=== PATIENT | male | born 1980 | race Caucasian/White ===

== ENCOUNTER 2017-03-19 03:51 | Inpatient (IN) | payer BC ==
[~2017-03-19] VITALS: Ht 175.3 cm; Wt 90.0 kg
--- NOTE | ~2017-03-19 | HP ---
PATIENT'S NAME: [facility] AGE: 36 Y [address] ROOM: [place] [address] LOCATION: [facility] ADMIT DATE: 03/19/2017 History & Physical DISCHARGE DATE: FAMILY PHYSICIAN: PHYSICIAN, UNKNOWN ATTENDING PHYSICIAN: Bari Muller DATE OF SERVICE: HISTORY OF PRESENT ILLNESS: This 36-year-old male was transferred here from [place]. He apparently was bucked off his horse. His left ankle got tangled in the strap. He was able to get this untangled, and he fell landing on the back of his head. Post fall, he complained of headaches and mild nausea. In addition, however, he also complained of some tingling in both arms and hands. However, assessment did not show any significant weakness in the upper or lower extremities. He was intubated in the hospital in [place], primarily because it was felt that he may not be able to maintain his airway and I think, by the way, it also could have had to do with the fact that CT of the chest showed a probability of lower lobe atelectasis. The assessment of his lower limbs were normal. He had a CT scan of the chest and abdomen, which did not show any injuries to the organs apart from the probable atelectasis that was reported on the CT of the chest. He had a CT scan of his cervical spine that shows a fracture of the anterior arch of C1 with some slight distraction. An x-ray of the left ankle did not show any fractures. He complained of left ankle pain. PAST MEDICAL AND SURGICAL HISTORY: 1. He has had hiatal hernia repair using Faizan fundoplication. 2. He also had a posterior fossa decompression with a C1 laminectomy for Chiari malformation. FAMILY HISTORY: Father had a heart attack in his 50s. Grandfather from a heart attack in his 40s. SOCIAL HISTORY: He does not smoke. ALLERGIES: HE IS ALLERGIC TO BENADRYL AND HYDROCODONE. REVIEW OF SYSTEMS: Could not be carried out primarily because of his neurological status. MEDICATIONS: See the admitting note. PATIENT'S NAME: [facility] AGE: 36 Y [address] ROOM: [place] [address] LOCATION: [facility] ADMIT DATE: 03/19/2017 History & Physical DISCHARGE DATE: FAMILY PHYSICIAN: PHYSICIAN, UNKNOWN ATTENDING PHYSICIAN: Bari Muller PHYSICAL EXAMINATION: VITAL SIGNS: In the Emergency Room, this is a 36-year-old male, whose blood pressure was 149/82, pulse was 89, respirations were 12, and temperature was 96.6. HEENT: His pupils were 2 mm and reacted briskly to light. NECK: The neck was placed in his collar. CHEST: Clear. CARDIAC: Heart rate was regular. NEUROLOGICAL: Examination was quite limited primarily because he has had Versed, and so there was really no response to painful stimuli. DIAGNOSTIC STUDIES: While he came, we went ahead and got an MRI of the cervical spine primarily because of the tingling that he complained of going down both upper extremities. Consequently, the MRI of the cervical spine was normal. He had a CTA of the neck, and this also was normal. IMPRESSION: 1. Fracture in anterior arch of C1. 2. Left ankle sprain. PLAN: I went ahead and removed the C-collar that he came in with, and put him in a [place] J collar. The plan will be to admit him to the Intensive Care Unit, and wean him off the vent. MD RYAN AUGUSTE/rayne /[id number] D: [id number] T: [id number] HISTORY & PHYSICAL
--- NOTE | ~2017-03-19 | ER ---
PATIENT'S NAME: EVONNE [facility] AGE: 36 Y [address] ROOM: [place] [address] LOCATION: [facility] ADMIT DATE: 03/19/2017 ER/Outpatient Report DISCHARGE DATE: FAMILY PHYSICIAN: PHYSICIAN, UNKNOWN ATTENDING PHYSICIAN: Bari Muller Time of Arrival: 0353 hours. Time Seen: 0353 hours. IDENTIFICATION: A 36-year-old male. CHIEF COMPLAINT: Trauma. HISTORY OF PRESENT ILLNESS: The patient is a 36-year-old male, who presented from [place], [place] after sustaining a cervical spine injury. He presented to the emergency room in [place] by private vehicle with his after being thrown from a horse. He got hung up on the strap with his left ankle, managed to free himself, but hit the ground and hit the posterior aspect of his head and upper torso. It reportedly did knock the wind out of him, but no loss of consciousness. This history is [facility] He presented with complaints of a severe headache, mild nausea, heaviness to his upper arms, and paresthesia bilaterally down both arms into the hands and complained of left ankle pain, but moves all extremities. Bilateral upper extremities were weaker, but moved that. After arrival there to the emergency room, he was given 1 g of IV Tylenol and then he dropped his blood pressure and heart rate, heart rate to 40s, blood pressures to 80s. He grew pale cooley and did not respond as well, so they did RSI him. So, he presented paralyzed and intubated. So, history was obtained from the flight team. He received rocuronium 1 hour prior to arrival. He is on a Versed drip and he has received fentanyl for pain. He has been hemodynamically stable for them. PAST MEDICAL HISTORY: ALLERGIES: TO BENADRYL AND HYDROCODONE. CURRENT MEDICATIONS: 1. Atorvastatin 40 mg daily. 2. Valium 5 mg p.r.n. MEDICAL PROBLEMS: Chiari malformation, status post surgery 2 years ago; hiatal hernia, status PATIENT'S NAME: [facility] AGE: 36 Y [address] ROOM: [place] [address] LOCATION: [facility] ADMIT DATE: 03/19/2017 ER/Outpatient Report DISCHARGE DATE: FAMILY PHYSICIAN: PHYSICIAN, UNKNOWN ATTENDING PHYSICIAN: Bari Muller post Faizan procedure with complications and ended up in open thoracic procedure; eosinophilic esophagitis. SOCIAL HISTORY: The patient is . Lives in [place], [place]. Tobacco use, none noted. Alcohol use, none noted. Drug use, none noted. FAMILY HISTORY: Father with heart attack in his 50s. Grandfather with a heart attack in his 40s. SURGERIES: Hiatal hernia surgery, open transthoracic repair of complications from a Faizan procedure, bilateral knee arthroscopy, and shoulder surgeries as well as Chiari malformation surgery. REVIEW OF SYSTEMS: Unable to obtain from this patient. PHYSICAL EXAMINATION: VITAL SIGNS: Pulse 89, respirations 12, temp 96.6, sats 97%, blood pressure 149/82. GENERAL: A 36-year-old male arrives by the flight team from [place] being ventilated on their ventilator. HEENT: Eyes are taped shut. TMs not visualized. Nose, mucosa pink. Mouth, no lesions. NECK: Immobilized in a C-collar. LUNGS: Clear to auscultation. Breath sounds are equal. No rhonchi, wheezes, or rales. HEART: Regular rate and rhythm. No murmur, rub, or gallop. ABDOMEN: Bowel sounds present. Soft, nondistended. No instability to pelvic rock. EXTREMITIES: He has a splint on his left lower extremity. No bony abnormalities to right lower extremity. The splint was removed from his left lower extremity. He has a few abrasions on his lower leg, swelling of the lateral ankle. LABORATORY DATA AND X-RAYS: X-ray did not reveal any fractures. A posterior splint was reapplied to his left lower extremity. Upper extremities, no obvious deformities are noted. No chest wall crepitus or deformities are noted. The patient was taken off the Versed drip and propofol was initiated per Dr. He, Anesthesia. CT scans and x-rays were reviewed as well as reports. Labs from [place] were reviewed as well. CT scan of the cervical spine showed fracture of the anterior arch of C1, status post occipital craniectomy and resection of the [facility]GE: 36 Y [address] ROOM: [id number] [place], [place] [address] LOCATION: [facility] ADMIT DATE: 03/19/2017 ER/Outpatient Report DISCHARGE DATE: FAMILY PHYSICIAN: PHYSICIAN, UNKNOWN ATTENDING PHYSICIAN: Bari Muller posterior arch of C1. CT scan of the head without contrast, no acute findings. CT scan of the chest, abdomen, and pelvis without contrast shows no evidence for acute thoracic abdominopelvic organ injury, old healed left posterior 8th rib fracture. The patient has dependent lower lobe airspace opacities most likely atelectasis. X-ray of the left ankle, no obvious fracture, he does have some soft tissue swelling noted. ABGs performed at 1:23 in [place] pH 7.33, pCO2 42, PO2 128, 99% sats. Sodium 142, potassium 4.1, chloride 110, CO2 of 23, BUN 24, creatinine 1.1. Blood sugar 96. Liver enzymes normal. Hemoglobin 16.3, hematocrit 46.8, platelets 221, white count 9.5. INR 1.03. Blood type AB-positive. Repeat labs here: Hemoglobin 15.1, hematocrit 44.4, platelets 181, white count 8.4. EMERGENCY DEPARTMENT COURSE: The patient received in [place] Zofran 8 mg IV, Versed 1 mg IV, fentanyl 50 mcg, 200 mg of sucks, 20 of etomidate, another 2 of Versed, another 50 of fentanyl, rocuronium 50 mg, lidocaine 15 mg, Ancef 2 g IV. Hackett catheter was placed draining clear urine. The patient had a tetanus booster. The patient was taken for MRI of his cervical spine without contrast immediately upon arrival as well as a CT of the neck both reviewed by Dr. Muller. IMPRESSION AND PLAN: 1. Acute C1 fracture. 2. Atelectasis versus bilateral pulmonary contusions. 3. Left ankle injury, no acute fracture identified, posterior splint reapplied. 4. Transient episode of hypotension and bradycardia, resolved. Dr. Mark He, Anesthesia was here on the patient arrival and Dr. Muller also saw the patient in the emergency room and was taken to ICU in stable condition. LEAH SAMANIEGO MD CAR/modl /[id number] d: 03/19/17740 t: 03/23/17628, OUTPATIENT REPORT
--- NOTE | ~2017-03-19 | DS ---
PATIENT'S NAME: MIHAI DOUGLASS [facility] AGE: 36 Y [address] ROOM: [id number] [place], [place] [address] LOCATION: [facility] ADMIT DATE: 03/19/2017 Discharge Summary DISCHARGE DATE: 03/21/2017 FAMILY PHYSICIAN: Magdaleno Renteria MD ATTENDING PHYSICIAN: Bari Muller [facility] COURSE: This 36-year-old male was transferred here from [place] after being bucked off his horse. His left ankle was caught in the strap. On arrival here, he had been intubated in the hospital [facility] primarily because on the assessment, they were unsure if he could keep his airway during the transfer. When he got here, he was still sedated and intubated. Prior to coming here, he had a CT scan of his chest done which does show the probability of some lower lobe atelectasis. CT of the cervical spine shows a fracture of the anterior arch of C1. X-ray of the left ankle did not show any fractures and since he really did not lose any consciousness, though he did complain of some headache in the local hospital. He was admitted to the intensive care unit here and we went ahead and weaned him off the ventilator. When he came around, we had some difficulty controlling his pain which we eventually were able to control and put him in a cervical collar. He did quite well and he was eventually discharged home, at which time, he was just taking extra-strength Tylenol for pain and used to wear his collar all the time and to see me in the clinic 3 weeks from the time of discharge. FINAL DIAGNOSES: Fracture anterior arch of C1. MD RYAN AUGUSTE/rayne /[id number] d: 04/23/172234 t: 04/24/171754, DISCHARGE SUMMARY
--- NOTE | ~2017-03-19 | CON ---
PATIENT'S NAME: EVONNE [facility] AGE: 36 Y [address] ROOM: [place] [address] [address]ATION: [facility] ADMIT DATE: 03/19/2017 Consultation DISCHARGE DATE: FAMILY PHYSICIAN: Magdaleno Renteria MD ATTENDING PHYSICIAN: Bari Muller HISTORY OF PRESENT ILLNESS: Dr. Muller has requested that I provide an inpatient consultation on this 36- year-old male, who was admitted yesterday after having been thrown and dragged by a horse. He was initially evaluated in the [facility] Emergency Room. He was transferred here to the Neuro Trauma Service. He has a C2 fracture. Dr. Muller has requested that I evaluate his left ankle pain. The patient and his state that he was thrown from a horse, and his left foot became trapped in the stirrup. He was dragged by his left foot in the stirrup for an unspecified period of time. He localizes his ankle pain to the medial aspect of his ankle. He denies ipsilateral knee pain. He denies lateral ankle pain. He denies history of prior left foot or ankle discomfort or dysfunction. His present medications and medical history are otherwise as specified on his chart. PRESENT MEDICATIONS: Include 1. Dilaudid. 2. Percocet. 3. Zofran. PHYSICAL EXAMINATION: GENERAL: He is alert and oriented, and in no distress. He is wearing a cervical spine collar. EXTREMITIES: There is no swelling or deformity at the left ankle. He is tender over the medial malleolus and deltoid ligament. There was no tenderness over the lateral malleolus or syndesmosis or fibular head. There is no left calf swelling or tenderness. There is no left foot swelling or tenderness. Sensation to light touch is intact throughout the left foot. A 1+ dorsalis pedis pulse on the left. RADIOGRAPHIC STUDIES: Four radiographic views of the left ankle demonstrate no fracture. There is no syndesmosis widening, and there is normal hindfoot alignment. IMPRESSION: Left ankle contusion - strain. No evidence of associated fracture or dislocation. PATIENT'S NAME: [facility] AGE: 36 Y [address] ROOM: [place] [address] LOCATION: [facility] ADMIT DATE: 03/19/2017 Consultation DISCHARGE DATE: FAMILY PHYSICIAN: Magdaleno Renteria MD ATTENDING PHYSICIAN: Bari Muller PLAN: I reassured the patient and his that there was no evidence of fracture of the ankle. He will be permitted to bear weight on the left lower extremity as tolerated. We will consider repeat radiographs if symptoms increase. We will consider an MRI if symptoms do not resolve in a timely fashion. I have asked to be contacted immediately if there is any trend of increased discomfort and/or inability to bear weight. MD KEON GARCIA/rayne /[id number] CC: Bari Muller MD d: 03/19/17 2319 t: 03/22/17 0752, CONSULTATION REPORT
--- NOTE | ~2017-03-19 | ER ---
PATIENT'S NAME: MARY SEGURA [facility] AGE: 36 Y [address] ROOM: [id number] [place] [id number] LOCATION: [facility] ADMIT DATE: 03/19/2017 ER/Outpatient Report DISCHARGE DATE: FAMILY PHYSICIAN: PHYSICIAN, UNKNOWN ATTENDING PHYSICIAN: Bari Muller Critical care management was performed between the hours of 0353 and 0534 on 03/19/2017. HISTORY OF PRESENT ILLNESS: Mary Segura is a 36-year-old gentleman who was riding a horse when he lost his seat and with his left leg trapped in the stirrup, got dragged. He was taken to the hospital at [facility] where he complained of weakness of the upper extremities, paresthesias and burning. He suffered an incident what was described as bradycardia and paleness. At that point, intubated the patient using rapid sequence, ketamine succinylcholine and holding midline axial traction. Evidently, he was intubated without any problem and placed on a Versed drip, having received some fentanyl in addition. He was transported down here by [employer], arriving at 0353 this morning. PHYSICAL EXAMINATION: GENERAL: A 36-year-old, well-developed, well-nourished, white male. HEENT: His pupils are 3 and equal and reactive, not able to follow commands. The rest of the HEENT exam is normal with exception of endotracheal tube present. Ears are normal bilaterally. The teeth appear to be intact. No evidence of obvious abrasions or contusions to the head. NECK: Neck is in a collar. It appears well fitted and tight. Did not obviously attempt to palpate the neck. CARDIAC: Regular rate and rhythm without evidence of murmur, although hearing in a room full of people is difficult. LUNGS: Clear at the tops, diminished at the bases. No evidence of wheezing, rales or rhonchi. ABDOMEN: Nondistended, nontender. Although, there is an orogastric tube present, I did not attempt to loosen the placement. LOWER EXTREMITIES: Appears to be quite a bit of scarring in the left lower extremity already, these appear well healed. His left ankle is in a splint, which I did not undo. PLAN: At that point, the patient was removed from the Versed drip, changed over to propofol at 20 mcg/kg/min. Transported to the MRI suite where he underwent an MRI. The patient did start moving bilaterally upper extremities during that case and was given an additional bolus of propofol and 10 of vecuronium. At that point, he was taken to the CT angiogram where he underwent CTA again under propofol. He remained stable throughout this entire thing. His blood PATIENT'S NAME: MARY SEGURA [facility] AGE: 36 Y [address] ROOM: [place] [address] LOCATION: [facility] ADMIT DATE: 03/19/2017 ER/Outpatient Report DISCHARGE DATE: FAMILY PHYSICIAN: PHYSICIAN, UNKNOWN ATTENDING PHYSICIAN: Bari Muller pressure ranged from a low of 110 systolic to a high of 150 systolic. Heart rates generally between 70 and 90. Saturations on 30% were still in the 98% to 100% range. At that point, he was taken back to the ER where the decision was made to go ahead and allow the drugs to pass off and wean and extubate at about 8:00 this morning. He was placed in a [place] J collar by Dr. Muller after his examination and transferred to the ICU. I took my leave of him at 0534. Thank you very much for allowing me to participate in the management of Mr. Segura's care. If you have any questions regarding this critical care management, please do not hesitate to call. Sincerely, MD AMOR CREWS/rayne /[id number] d: 03/19/17 0647 t: 04/09/17 1120, OUTPATIENT REPORT
[2017-03-19 04:22] LABS: BASOPHIL % 0.4 %; EOSINOPHIL # 0.2 K/uL (0.0-0.5); EOSINOPHIL % 1.8 %; HEMATOCRIT 44.4 % (37.0-53.0); HEMOGLOBIN 15.1 g/dL (12.0-17.0); IMMATURE GRANULOCYTE % 0.2 %; LYMPHOCYTE # 1.1 K/uL (0.8-4.0); LYMPHOCYTE % 12.5 %; MCH 30.7 pg (27.0-34.0); MCV 90.2 fl (83.0-98.0); MONOCYTE # 0.7 K/uL (0.0-1.0); MONOCYTE % 8.5 %; MPV 10.5 fl (9.4-12.4); NEUTROPHIL # (ANC) 6.4 K/uL (1.4-9.0); NEUTROPHIL % 76.6 %; NRBC % 0 /100WBC (0-0.00); PLATELET COUNT 181 K/uL (150-450); RBC 4.92 M/uL (4.00-6.00); RDW-CV 13.2 % (11.9-14.6); WBC 8.4 K/uL (4.0-11.0)
--- NOTE | 2017-03-19 16:38 | NUR ---
Significant Event: Patient was extubated at 09:05. Remained on N/C 2L until 13:00 then switched to room air. Lung sounds are clear and dim. Neuro- alert and oriented x3, follows all commands, pupils are equal and brisk at 2. Reports tingling sensation down bilateral arms. - Hackett was removed at 09:05, currently voiding adequate amounts of clear/yellow urine. No BM. Afebrile. Lacerations to lower left ankle. C-collar brace in place. Patient is currently a two assist to stand at bedside. Follow up: Dr. Tobias has been consulted for possible left lower fibula fracture.
--- NOTE | 2017-03-19 17:41 | NUR ---
D: RESP DISTRESS I: N/A R: PT WAS PLACED INTO CPAP/PS 12/17 AROUND 0850 THIS AM, TOLERATED WELL AFTER A FEW MINUTES, RR WAS UNDER 20 BPM & VT'S WERE ON AVERAGE 700'S, EXTUBATED PT @ 0905 TO A 3 LPM NC, WEANED DOWN TO ROOM AIR THIS AFTERNOON, NO OTHER SIGNIFICANT CHANGES T/O DAY P: CONT.
--- NOTE | 2017-03-20 04:38 | NUR ---
Significant Event: Patient is alert and oriented x 3. VSS on room air. Stood at the bedside with 1 assist, patient did not ambulate this shift. WBAT to bilateral lower extremities. Rigid C-Collar on and intact. Patient states he has burning to bilateral arms, but stated it has improved since admission. Equal strength throughout. PERRLA. Voiding well per urinal. Zofran given for nausea last at 0411. Dilaudid given last at 0411 for neck pain. Left wrist IV with NS running at 125 ml/hr. Right hand IV, saline locked. at the bedside. Patient is pleasant and cooperative with cares. Follow up:
--- NOTE | 2017-03-20 15:31 | NUR ---
Introduced self and role of care management to pt. [place] with his and 4 girls. He states he is doing much better this afternoon and did walk without any dme. He is planning back home and denies needs. His works from home so she will be able to assist him. WIll continue to follow.
--- NOTE | 2017-03-20 16:24 | NUR ---
Significant Event: Patient is A/Ox3, follows all commands. C/O bruning from neck down to bilateral fingers that has improved as shift has gone on. Denies numbness/tingling. Denies headache. Ccollar intact, pads changed. PT ordered today. SR with HR 50-80's. SBP WNL. Afebrile. RA,spo2 >93%. Lungs asculated clear-clear/diminished. Regular diet, tolerating well. Gave zofran x1 dose. Active bowel sounds, no BM. Colace started today and one dose given. Percocet and diludid discontinued today, patient was itchy with the dilaudid and itichiness increased after percocet given, zyrtec started and one dose given, itchiness has cleared. Tylenol xtra strength started and one dose given. Toradol 30mg IVP x1 dose given for uncontrolled pain, pain rating after has been 6/10, which is tolerable to patient. Made floor status today. Follow up:Transfer to floor with bed availablity.
--- NOTE | 2017-03-21 03:32 | NUR ---
Significant Event: PATIENT A/OX3. FOLLOWS COMMANDS. EQUAL STRENGTH THROUGHOUT. DENIES NUMBNESS/TINGLING. DENIES BURNING IN ARMS/NECK. HR'S 60'S-70'S. SBP 110'S-130'S. AFEBRILE. VSS ON RA. HYPOACTIVE BS. NO BM DURING SHIFT. TYLENOL GIVEN Q4HRS. TORADOL GIVEN X1. Follow up: CONTINUE TO MONITOR.
== END 2017-03-21 13:15 | disposition disaster alternative care site (69) | DRG 552 ==
LOC: GACC 03:51 → GICU 05:30
PROVIDERS: Family Medicine; ADMIT Neurological Surgery
PROC: 5A1935Z Respiratory Ventilation, Less than 24 Consecutive Hours (ICD-10-PCS; principal; 2017-03-19)
DX: S12.090A Other displaced fracture of first cervical vertebra, initial encounter for closed fracture (principal); R51 Headache; S93.492A Sprain of other ligament of left ankle, initial encounter; V80.010A Animal-rider injured by fall from or being thrown from horse in noncollision accident, initial encounter
CPT/HCPCS: J1885; J2270; J2405; J2704; J7030; L0174; Q9967

== ENCOUNTER → 2017-03-19 | Outpatient (CLI) | payer BC | END | disposition disaster alternative care site (69) | LOC: GAMB 03:22 | DX: S19.9XXA Unspecified injury of neck, initial encounter (principal); S12.000A Unspecified displaced fracture of first cervical vertebra, initial encounter for closed fracture; V80.929A Occupant of animal-drawn vehicle injured in unspecified transport accident, initial encounter | CPT/HCPCS: A0425; A0428 ==